=== PATIENT | female | born 1980 ===

== ENCOUNTER → 2018-10-05 22:34 | Outpatient (REF) | payer OTHER, MEDICAID, SELFPAY ==
[2018-10-06 01:48] LABS: Add Manual Diff / Slide Review NO; Basophils Absolute Auto 100 /uL (0-100); Basophils Percent Auto 1.1 % (0-2); Eosinophils Absolute Auto 100 /uL (0-450); Hematocrit 35.3 % (36-46); Hemoglobin 11.7 g/dL (12.0-16.0); Lymphocytes Absolute Auto 1800 /uL (1100-4500); Lymphocytes Percent Auto 24.2 % (25-40); Mean Corpuscular HGB Conc 33.1 % (30-36); Mean Corpuscular Hemoglobin 29.2 PG (26-34); Mean Corpuscular Volume 88.2 fL (80-100); Monocytes Absolute Auto 600 /uL (0-900); Monocytes Percent Auto 8.5 % (3-14); Neutrophils Absolute Auto 4800 /uL (1500-7000); Neutrophils Percent Auto 65.2 % (50-75); Platelet Count 254 X10^3/uL (150-400); Red Cell Distribution Width 15.3 % (11.6-14.8); White Blood Cell Count 7.3 X10^3/uL (4.5-11.0)
[2018-10-06 02:53] LABS: Ferritin 21.1 ng/mL (6.27-137)
[2018-10-06 03:52] LABS: HEMOLYSIS < 15 (0-50); Iron 35 ug/dL (37-170)
[2018-10-06 04:02] LABS: Percent Iron Saturation 12 % (15-50); Total Iron Binding Capacity 287 ug/dL (265-497); Transferrin 220 mg/dL (206-381)
== END ==
LOC: LAB 22:34
PROVIDERS: Visit Provider Naturopath
DX: N92.1 Excessive and frequent menstruation with irregular cycle (principal); R53.83 Other fatigue
CPT/HCPCS: 36415; 82728; 83540; 83550; 85025

== ENCOUNTER → 2018-10-10 20:56 | Outpatient (REF) | payer OTHER, MEDICAID, SELFPAY ==
[2018-10-10 22:21] LABS: TSH w/ Reflex to FT4 1.25 uIU/mL (0.47-4.68)
== END ==
LOC: LAB 20:56
PROVIDERS: Visit Provider Naturopath
DX: E66.3 Overweight (principal)
CPT/HCPCS: 36415; 82397; 84443